=== PATIENT | female | born 1995 | race Caucasian/White ===

== ENCOUNTER 2023-10-02 05:00 | Inpatient (IN) | payer MEDICAID ==
[2023-10-02] MEDS ORDERED: ePHEDrine 50 MG/ML SDV IVPUSH PRN ×2 (08:29)
[2023-10-02] MEDS ORDERED: Phenylephrine HCl 0.5 MG/5 ML AMP IVPUSH PRN (08:29)
[2023-10-02] MEDS: Misoprostol 25 MCG (1/4 of 100 MCG) Tab ONE (10:09)
[2023-10-02] MEDS ORDERED: Misoprostol 25 MCG (1/4 of 100 MCG) Tab VAG PRN ×2 (11:03)
[2023-10-02] MEDS ORDERED: diphenhydrAMINE 50 MG Cap PO PRN (11:03)
[2023-10-02] MEDS ORDERED: Terbutaline 1 MG/ML SDV SUBCUT PRN (11:03)
[2023-10-02] MEDS ORDERED: Acetaminophen 325 MG Tab PO PRN (11:03)
[2023-10-02] MEDS ORDERED: Simethicone 80 MG Tab.Chew PO PRN (11:03)
[2023-10-02 11:19] LABS: AMPHETAMINES SCREEN, URINE NEGATIVE (CUTOFF=500); BARBITURATE SCREEN,URINE NEGATIVE (CUTOFF=200); BENZODIAZEPINES SCREEN,URINE NEGATIVE (CUTOFF=150); BUPRENORPHINE SCREEN,URINE NEGATIVE (CUTOFF=10); METHADONE SCREEN, URINE NEGATIVE (CUTOFF=200); METHAMPHETAMINES SCREEN, URINE NEGATIVE (CUTOFF=500); OXYCODONE SCREEN,URINE NEGATIVE (CUT0FF=100); PCP SCREEN,URINE NEGATIVE (CUTOFF=25); THC SCREEN,URINE 20 NG/ML NEGATIVE (CUTOFF=50)
[2023-10-02 12:03] LABS: HEMATOCRIT 33.3 % (37.0-47.0); HEMOGLOBIN 11.1 g/dL (12.0-16.0); MEAN CORPUSCULAR HEMOGLOBIN 29.3 pg (28.0-32.0); MEAN CORPUSCULAR HGB CONC 33.3 g/dL (32.0-36.0); MEAN CORPUSCULAR VOLUME 87.9 fL (83.0-99.0); MEAN PLATELET VOLUME 10.9 fL (9.4-12.3); PLATELET COUNT,PLT 309 K/uL (150-400); RED BLOOD CELL COUNT 3.79 M/uL (4.10-5.30); WHITE BLOOD CELL COUNT,WBC 11.57 K/uL (3.9-11.3)
[2023-10-02] MEDS: Lactated Ringers 1,000 ML IV SCH (12:05)
[2023-10-02] MEDS: Oxytocin/0.9 % Sodium Chloride 30 UNIT/500 ML BAG IV SCH (14:18)
[2023-10-02] MEDS ORDERED: Nalbuphine 10 MG/0.5 ML Syringe ONE (15:14)
[2023-10-02] MEDS: Nalbuphine 10 MG/0.5 ML Syringe IVPUSH PRN (15:17)
[2023-10-02] MEDS: Ropivacaine HCl/PF 400 MG in Premix Bag 1 BAG EPIDUR SCH (19:00)
[2023-10-02] MEDS ORDERED: dexmedeTOMIDine HCl 200 MCG/2 ML SDV ONE (19:08)
[2023-10-03] MEDS: Ondansetron 4 MG/2 ML SDV IVPUSH PRN (04:57)
[2023-10-03 07:46] LABS: PH,UMBILICAL ARTERIAL 7.126 (7.18-7.38); PH,UMBILICAL VENOUS 7.225 (7.25-7.45)
[2023-10-03] MEDS: Witch Hazel Medicated Pads 40/Jar TOP PRN (09:11)
[2023-10-03] MEDS: Benzocaine/Menthol 20%-0.5% Spray 78 GM Cannister TOP PRN (09:12)
[2023-10-03] MEDS: Ferrous Sulfate 325 MG Tab PO SCH (09:12)
[2023-10-03] MEDS: Acetaminophen 500 MG Tab PO PRN (09:13)
[2023-10-03] MEDS: Docusate Sodium 100 MG Cap PO PRN (09:13)
[2023-10-03] MEDS: Prenatal Multivitamin with Calcium/Folic Acid/Iron Tab PO SCH (09:13)
[2023-10-03] MEDS: Ibuprofen 800 MG Tab PO PRN (12:03)
[2023-10-03] MEDS: Lanolin 100% Cream 7 GM Tube TOP PRN (16:39)
[2023-10-04 11:50] LABS: HEMATOCRIT 32.4 % (37.0-47.0); MEAN CORPUSCULAR HEMOGLOBIN 29.1 pg (28.0-32.0); MEAN CORPUSCULAR VOLUME 85.7 fL (83.0-99.0); MEAN PLATELET VOLUME 10.6 fL (9.4-12.3); PLATELET COUNT,PLT 289 K/uL (150-400); RED BLOOD CELL COUNT 3.78 M/uL (4.10-5.30); WHITE BLOOD CELL COUNT,WBC 15.84 K/uL (3.9-11.3)
[2023-10-04 12:25] VITALS: BP 112/60; PULSE 74
== END 2023-10-04 14:20 | disposition home or self-care (01) | DRG 807 ==
LOC: MW.OB 05:00 → OBSVTOIN 10-03 06:53 → MW.OB 10-03 11:34
PROVIDERS: ADMIT Obstetrics & Gynecology; ATTEND Obstetrics & Gynecology
PROC: 10E0XZZ Delivery of Products of Conception, External Approach (ICD-10-PCS; principal; 2023-10-03)
PROC: 0KQM0ZZ Repair Perineum Muscle, Open Approach (ICD-10-PCS; 2023-10-03)
PROC: 3E033VJ Introduction of Other Hormone into Peripheral Vein, Percutaneous Approach (ICD-10-PCS; 2023-10-03)
PROC: 3E0P7VZ Introduction of Hormone into Female Reproductive, Via Natural or Artificial Opening (ICD-10-PCS; 2023-10-03)
PROC: 0U7C7ZZ Dilation of Cervix, Via Natural or Artificial Opening (ICD-10-PCS; 2023-10-03)
PROC: 3E0R3BZ Introduction of Anesthetic Agent into Spinal Canal, Percutaneous Approach (ICD-10-PCS; 2023-10-03)
PROC: 00HU33Z Insertion of Infusion Device into Spinal Canal, Percutaneous Approach (ICD-10-PCS; 2023-10-03)
PROC: 10H073Z Insertion of Monitoring Electrode into Products of Conception, Via Natural or Artificial Opening (ICD-10-PCS; 2023-10-03)
DX: O99.02 Anemia complicating childbirth (principal); Z37.0 Single live birth; O76 Abnormality in fetal heart rate and rhythm complicating labor and delivery; Z3A.39 39 weeks gestation of pregnancy; O70.1 Second degree perineal laceration during delivery
CPT/HCPCS: 36415; 51702; 59020; 59200; 59409; 80305-QW; 82803; 85027; 86592; 86850; 86900; 86901; A9270-GY; J2300; J2405; J2590; J2795; J3490; J7120